=== PATIENT | female | born 1965 | race Caucasian/White ===

== ENCOUNTER 2016-10-14 11:24 | Outpatient (CLI) | payer OTHER ==
[2015-07-09 07:39] VITALS: BP 130/70
--- NOTE | 2016-10-14 14:57 | Diagnostic Imaging Report ---
HERMELINDA MENCHACA [facility] [address] [facility].[address] [address] Report Submission Date: Oct 14, 2016 12:14:34 PM MILANESE KNITTING MACHINE OPERATOR Patient Study Name: NANCY SPRINGER Date: Oct 14, 2016 11:51:37 AM MILANESE KNITTING MACHINE OPERATOR Modality Type: CR Gender: F Description: LOWER EXTREMITY : 69 Institution: [facility] Physician: HERMELINDA MENCHACA Left foot 3 views History: 2 months of foot pain Findings: Dorsal and plantar heel spurs are present. There is no fracture, dislocation, significant arthropathy, or focal bone lesion. Impression: Heel spurs. Electronically signed on Oct 14, 2016 12:14:34 PM MILANESE KNITTING MACHINE OPERATOR by: Festus SUTHERLAND
== END 2016-10-14 11:25 ==
LOC: RAD 11:24
PROVIDERS: ATTEND Physician Assistant
DX: M77.32 Calcaneal spur, left foot (principal); M79.672 Pain in left foot
CPT/HCPCS: 73630

== ENCOUNTER 2016-11-26 23:53 | Emergency (ER) | payer OTHER ==
[2016-11-27 01:21] VITALS: BP 140/94
--- NOTE | 2016-11-27 06:01 | ED Physician Documentation ---
Upper Extremity Problem - HISTORIAN Historian: patient - HPI Stated Complaint: blood exposure Chief Complaint: General Adult Timing: still present Associated Symptoms: denies: fever, chills Further Comments: yes (Patient was helpling put an IO in a pateint when she was handing s tubing to the patient placing the IO and got some of the patient's blood off his glove onto her finger tip that has an open wound of about one day old.) - ROS CONST: no problems - PAST HX Past History: none Allergies/Adverse Reactions: Allergies Allergy/AdvReac Type Severity Reaction Status Date / Time Sulfa (Sulfonamide Allergy Verified 07/09/15 07:40 Antibiotics) Tetanus Vaccines & Toxoid Allergy Verified 07/09/15 07:40 Home Medications: Ambulatory Orders Medication Instructions Recorded Aspirin [Aspir 81] 81 mg PO DAILY u2 03/19/15 - SOCIAL HX Smoking History: secondhand Alcohol Use: none Drug Use: none - FAMILY HX Family History: no significant history - VITAL SIGNS Vital Signs: Vital Signs Temp Pulse Resp BP Pulse Ox 97.7 F 81 16 140/94 96 11/26/16 23:53 11/27/16 01:22 11/27/16 01:22 11/27/16 01:22 11/27/16 01:22 - REVIEWED ASSESSMENTS Nursing Assessment Reviewed: Yes Vitals Reviewed: Yes Upper Extremity Problem - EXAM General Appearance: no acute distress, alert Skin: warm/dry, normal color, other (sleaded minor cut to the distal finger) Peripheral: sensation nml Discharge Clincal Impression: Exposure to blood or body fluid Additional Instructions: keep area clean and dry, watch for infection. Home Medications: Ambulatory Orders Aspirin [Aspir 81] 81 mg PO DAILY u2 03/19/15 Condition: Stable Disposition: 01 HOME, SELF-CARE Decision to Admit: NO Date of Decison to Admit: 11/26/16 Decision Time: 23:00
== END 2016-11-27 00:30 | disposition home or self-care (01) ==
LOC: ED 23:53
DX: Z77.21 Contact with and (suspected) exposure to potentially hazardous body fluids (principal)
CPT/HCPCS: 99283

== ENCOUNTER 2016-12-13 19:11 | Outpatient (CLI) | payer OTHER ==
--- NOTE | 2016-12-14 06:42 | Diagnostic Imaging Report ---
SUZETTE DYSON [facility] [address] [facility].[address] [address] Report Submission Date: Dec 13, 2016 7:50:09 PM CDT Patient Study Name: NANCY SPRINGER Date: Dec 13, 2016 7:23:33 PM CDT Modality Type: CR Gender: F Description: LOWER EXTREMITY : 69 Institution: [facility] Physician: SUZETTE DYSON Right foot 3 views Date of Exam: December 13, 2016. History: RIGHT HEEL PAIN (Hx) Findings: No comparison studies are provided. There is no evidence of acute fracture or dislocation. Marked calcaneal spurring is present. The tibiotalar alignment is maintained. There is soft tissue swelling overlying the calcaneus. Impression: Calcaneal spurring with overlying soft tissue swelling. Electronically signed on Dec 13, 2016 7:50:09 PM CDT by: Cullen SUTHERLAND
== END 2016-12-13 19:16 | disposition home or self-care (01) ==
LOC: RAD 19:11
PROVIDERS: ATTEND Family Medicine
DX: M79.671 Pain in right foot (principal)
CPT/HCPCS: 73630

== ENCOUNTER 2016-12-20 01:44 | Outpatient (CLI) | payer OTHER | END 2016-12-20 01:45 | LOC: LABWO 01:44 | PROVIDERS: ATTEND Family Medicine | DX: Z02.83 Encounter for blood-alcohol and blood-drug test (principal) ==